=== PATIENT | female | born 1985 | race Caucasian/White ===

== ENCOUNTER → 2020-02-22 16:38 | Outpatient (CLI) | payer MEDICAID, SELFPAY ==
[2016-01-02 20:47] VITALS: BMI 19.8
[2020-02-22 18:24] LABS: AST(SGOT) 13 U/L (15-37); Alanine Aminotransfer ALT/SGPT 17 U/L (13-56); Albumin, Serum 4.2 g/dL (3.2-5.0); Alkaline Phosphatase 53 U/L (45-117); Bilirubin, Direct 0.12 mg/dL (0.00-0.30); Globulin 3.5 g/dL (2.2-4.2); Protein, Total 7.7 g/dL (6.4-8.2)
[2020-02-23 10:19] LABS: Hepatitis B Surface Antigen Non-Reactive (Nonreactive); Hepatitis C Antibody Non-Reactive (Nonreactive)
== END ==
DX: R63.0 Anorexia (principal); R53.81 Other malaise; R11.0 Nausea
CPT/HCPCS: 36415; 80076; 86803; 87340

== ENCOUNTER 2020-08-17 15:57 | Emergency (ER) | payer MEDICAID, SELFPAY ==
[2020-08-17 15:59] VITALS: BP 119/81; PULSE 94; RESP 18; TEMP 36.2; O2SAT 99; BMI 26.6
[2020-08-17 16:12] VITALS: BP 129/80; PULSE 92; RESP 14; O2SAT 97
--- NOTE | 2020-08-17 16:12 | ED.DCSUM_ITS ---
History of Present Illness Chief Complaint: Diarrhea Detail of Chief Complaint: Temperature 100.1 and diarrhea Informant: Patient Onset: Days - Onset August 15 Context: Sudden Onset Timing: Intermittent Quality: Watery/chunks Location: GI Current Severity: Mild Maximum Severity: Moderate Worsened by: Nothing Relieved by: Improved with Imodium Associated Symptoms: No other symptoms Narrative: 34-year-old woman who presents with diarrhea that started Friday with a document temperature 100.1. No coworkers have Covid. She has no exposure to Covid. She does report mild rhinorrhea. She denies congestion postnasal drainage. Denies sore throat. Denies cough. Denies shortness of breath. She denies change in taste or smell. She does report mild headache. He denies photophobia, neck pain or neck stiffness. She denies nausea or vomiting. She has abdominal pain. She denies urologic symptoms. She denies dry mouth or thirst. She denies orthostatic symptoms. Prior similar symptoms: No Recent Illness/Hospitalization: No - Past Medical History (1) No significant past medical history Status: Acute Past Medical History - Allergies and Home Meds Allergies/Adverse Reactions: Allergies Penicillins [PCN] Allergy (Verified 08/17/20 15:58) Hives Primary Care Physician: Care Physician,No Primary [Primary Care Provider] - Prior records reviewed: No Past Medical History: None Surgical History: noncontributory Lives: Alone - Patient is single. Smoking Status: Unknown if ever smoked Drugs: None Review of Systems General: Reports: Fever. Denies: Chills, Malaise, Subjective, Sweats Eyes: Denies: Visual changes - bilaterally, Blurred Vision - bilaterally ENT: Reports: Rhinorrhea. Denies: Bilateral ear pain, Sore throat Cardiovascular: Denies: Chest pain, Palpitations Respiratory: Denies: Dyspnea, Cough, Dyspnea on exertion, Orthopnea, Paroxysmal nocturnal dyspnea Gastrointestinal: Reports: Diarrhea. Denies: Abdominal pain, Nausea, Vomiting, Melena, Hematochezia Genitourinary: Denies: Dysuria, Hematuria, Frequency Musculoskeletal: Reports: Myalgias. Denies: Arthralgias, Neck pain, Back pain, Swelling, Extremity Pain Skin: Denies: Rash, Wounds Neurological: Reports: Headache. Denies: Weakness, Parasthesia Physical Exam Vital Signs/Narrative: Vital Signs Temp Pulse Resp BP Pulse Ox 08/17/20 15:59 97.2 F L 94 18 119/81 H 99 Inital Vital Signs reviewed: Yes General: Well nourished, Well developed, No Acute Distress Head: Normocephalic, Atraumatic Eyes: Perrl, EOMI. Negative for: Pale conjunctiva ENT: Moist mucous membranes Neck: Supple, Nontender, No lymphadenopathy, No JVD Cardiovascular: Regular rate, Regular rhythm, No murmurs, Normal S1, Normal S2 Respiratory: No distress, CTA bilaterally, Chest nontender Abdomen: Soft, Nontender, Nondistended, Normal bowel sounds, No masses Rectal: Deferred Extremities: Nontender, No edema Skin: Normal color, No rash Neurological: Alert, Oriented x3, Cranial nerves II-XII grossly intact, Normal Strength, Normal Sensation Psychological: Normal affect, Normal Mood Diagnostic/Tx/Re-eval No tests are needed. - Medical Decision Making Patient clinically is not dehydrated. Diarrhea is improving with Imodium. When asked if patient had any questions or any dialysis I could do for her she responded I need a work excuse. I informed her that I would document that she was here and that her onset of illness started on August 15Friday. ED Disposition - Plan for ED Patient: Disposition: Home or Assisted Living Diagnosis: Diarrhea Instructions: ED Diarrhea, Unknown Cause Referrals: Care Physician,No Primary [Primary Care Provider] - Additional Instructions: Follow-up with your primary care provider. The name of your primary care provider is on your insurance card issued to you by [facility].
[2020-08-17 16:42] VITALS: BP 113/77; PULSE 80; RESP 16; O2SAT 98
== END 2020-08-17 16:43 | disposition home or self-care (01) ==
LOC: ED 16:32
PROVIDERS: Emergency Provider Emergency Medicine
DX: R19.7 Diarrhea, unspecified (principal)
CPT/HCPCS: 99282

== ENCOUNTER → 2020-11-07 11:57 | Outpatient (CLI) | payer MEDICAID, SELFPAY ==
[2020-11-07 14:10] LABS: AST(SGOT) 13 U/L (15-37); Alanine Aminotransfer ALT/SGPT 26 U/L (13-56); Albumin, Serum 3.9 g/dL (3.2-5.0); Alkaline Phosphatase 56 U/L (45-117); Bilirubin, Direct 0.13 mg/dL (0.00-0.30); Globulin 4.1 g/dL (2.2-4.2)
[2020-11-07 14:54] LABS: Hepatitis B Surface Antigen Non-Reactive (Nonreactive); Hepatitis C Antibody Non-Reactive (Nonreactive)
== END ==
DX: R63.0 Anorexia (principal); R53.81 Other malaise; R11.0 Nausea
CPT/HCPCS: 36415; 80076; 86803; 87340

== ENCOUNTER 2020-12-12 22:33 | Emergency (ER) | payer MEDICAID, SELFPAY ==
[2020-12-12 22:34] VITALS: BP 151/93; PULSE 110; RESP 18; TEMP 36; O2SAT 95
--- NOTE | 2020-12-12 22:59 | EX.ED.DYSGE1 ---
HPI History of Present Illness Chief Complaint: Abscess Informant: patient Narrative Narrative: Patient is a 35-year-old previously healthy female who presents to the emergency department for abscess/cellulitis to the left thigh and right buttock. It has been present over the past 5 days. She is never had this before in the past. She has not been trying anything for it touching the area is very tender. She has had some discharge present. She denies any systemic symptoms including any fever/chills or nausea/vomiting. She denies any rash elsewhere. No chest pain or shortness. Cough, cold, congestion. No change in moving bowels. No urinary issues. PFSH PFSH Home Medications cephalexin 500 mg PO Q6 7 Days #28 capsule 12/12/20 [Rx Last Taken Unknown] naltrexone microspheres [Vivitrol] mg IM 12/12/20 [History Last Taken Unknown] Allergy/AdvReac Type Severity Reaction Status Date / Time Penicillins [PCN] Allergy Hives Verified 12/12/20 22:33 Social History Smoking Status: Current every day smoker tobacco type: cigarettes ROS ROS ED Constitutional Constitutional ED: Denies chills or fever(s) Eyes Eyes: Denies change in vision ENT ENT ED: Denies epistaxis or rhinorrhea Cardiovascular Cardiovascular: Denies chest pain or palpitations Respiratory/Chest Respiratory/Chest: Denies cough or dyspnea Gastrointestinal Gastrointestinal: Denies abdominal pain, diarrhea, nausea or vomiting Musculoskeletal Musculoskeletal: Denies back pain or neck pain Integumentary Reports abscess Neurologic Neurologic: Denies dizziness, headache(s) or weakness EXAM Physical Exam Const Vital Signs: 12/12/20 22:34 Temperature 96.8 F L Temperature Source Temporal Pulse Rate 110 H Respiratory Rate 18 Blood Pressure 151/93 H Blood Pressure Mean 112 Pulse Ox 95 Oxygen Delivery Method Room Air Positive well nourished and well developed General Appearance ED: well developed and NAD HEENT Reports normocephalic and head/scalp atraumatic Eyes PERRL and EOMs intact bilaterally Neck supple Resp normal respiratory effort and clear to auscultation bilaterally Cardio regular rate and regular rhythm Extremity normal to inspection General Extremety ED: Negative for edema General Extremity: Negative for edema Neuro Sensorium / Orientation: alert Motor Exam: strength 5/5 throughout Psych mental status grossly normal Skin Skin Narrative: Circular area of erythema with pustule in the center of the left medial thigh. There is another area present on the right buttock with similar appearance. No foreign body appreciated. No underlying fluctuating abscess present. There is is indurated and tender. It is warm to the touch. MDM MDM MDM Narrative Medical decision making narrative: Patient presents to the emergency department for cellulitis on her left inner thigh and one spot on the right buttock. Upon arrival to the emergency department she is in no acute distress. She does have cellulitis on exam without any evidence of drainable abscess. Patient will be placed on Keflex. She does have a penicillin allergy which is not anaphylaxis. She has any reaction we can switch this to clindamycin. She otherwise is to follow-up with her PCP. Return precautions are reviewed including any worsening of the swelling, developing systemic symptoms. She understands and is agreeable this plan. All questions were answered. Discharge Plan Triage Chief Complaint: Abscess ED Provider: Maxime Miranda Dx/Rx/DC Orders Clinical Impression: Cellulitis Instructions: ED Cellulitis Prescriptions: New cephalexin 500 mg capsule 500 mg PO Q6 7 Days Qty: 28 RF: 0 No Action Vivitrol 380 mg suspension,extended rel recon IM RF: 0 Primary Care Provider: Care Physician,No Primary Referrals: Care Physician,No Primary [Primary Care Provider] - 1 Week if not improving Disposition Disposition: Home, self care
[2020-12-12] MEDS: Cephalexin 250 MG Capsule 500 MG PO (23:05)
== END 2020-12-12 23:07 | disposition home or self-care (01) ==
LOC: ED 23:01
PROVIDERS: Emergency Provider Emergency Medicine
DX: L03.116 Cellulitis of left lower limb (principal); F17.210 Nicotine dependence, cigarettes, uncomplicated
CPT/HCPCS: 99283